=== PATIENT | male | born 1950 | race Caucasian/White ===

== ENCOUNTER → 2017-01-23 | Outpatient (CLI) | payer OTHER | LOC: BHCLAF 10:45 | PROVIDERS: ATTEND Internal Medicine Cardiovascular Disease | DX: I42.9 Cardiomyopathy, unspecified (principal); I34.9 Nonrheumatic mitral valve disorder, unspecified | CPT/HCPCS: 93306-PO ==

== ENCOUNTER → 2017-01-25 | Outpatient (CLI) | payer OTHER | LOC: BHFA 13:30 | PROVIDERS: ATTEND Internal Medicine Cardiovascular Disease | DX: I47.2 Ventricular tachycardia (principal); I42.8 Other cardiomyopathies; I49.3 Ventricular premature depolarization ==

== ENCOUNTER 2018-10-29 14:12 | Inpatient (IN) | payer OTHER ==
[2018-10-29 15:02] LABS: PLATELET COUNT 231 10^3/uL (150-400)
--- NOTE | 2018-10-29 15:31 | EDPHY ---
H & P Stated Complaint: defibrillaator went of 4 times Time Seen by Provider: 10/29/18 14:54 HPI/ROS: CHIEF COMPLAINT: Defibrillator went off 4 times HISTORY OF PRESENT ILLNESS: 68-year-old male with nonischemic cardiomyopathy and a ICD presents after his defibrillator went off. He was caring a heavy glass door and had just sat down, when his AICD went off. This occurred at approximately 1:00 p.m.. The defibrillator discharge 3 subsequent times in 15 min. He denies chest pain, shortness of breath or dizziness during this period of time. He is currently asymptomatic. AICD was placed in 2014 and has never discharge previously. 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, nonsustained ventricular tachycardia, status post AICD placement in 2014, BLEEDING ULCER, HTN , ELEVATED CHOLESTEROL, COPD - Social History Smoking Status: Former smoker - Physical Exam Exam: General Appearance: Alert, pleasant Eyes: Pupils equal and round, no conjunctival pallor or injection ENT, Mouth: Mucous membranes moist Neck: Normal inspection Respiratory: Lungs are clear to auscultation Cardiovascular: Regular rate and rhythm Gastrointestinal: Abdomen is soft and nontender Neurological: A&O, nonfocal exam Skin: Warm and dry, no rash Extremities: Nontender, no pedal edema Psychiatric: Mood and affect normal Constitutional: Initial Vital Signs Temperature (C) 36.9 C 10/29/18 14:26 Heart Rate 75 10/29/18 14:26 Respiratory Rate 18 10/29/18 14:26 Blood Pressure 141/67 H 10/29/18 14:26 O2 Sat (%) 92 10/29/18 14:26 O2 Delivery Mode Room Air Allergies/Adverse Reactions: No Known Allergies Allergy (Unverified 02/06/15 22:17) Home Medications: Medication Instructions Recorded [place]-3 Fatty Acids [Fish Oil 1000 1,000 mg PO DAILY 02/07/15 mg (*)] Ascorbic Acid [Vitamin C 500 mg 500 mg PO DAILY@0530 09/22/15 (*)] FEXOFENADINE HCL 180 mg PO BID@0530,1700 09/22/15 Fluticasone Nasal [Flonase Nasal 2 sprays NASAL DAILY@17009/22/15 [place]] Lisinopril [Zestril 5 mg (*)] 5 mg PO DAILY@1700 09/22/15 Lovastatin 40 mg PO DAILY@17009/22/15 Metoprolol Succinate Xr [Toprol Xl 200 mg PO DAILY@17010/29/18 100 mg (*)] Warfarin Sodium [Coumadin 5MG (*)] 5 mg PO DAILY@17 10/29/18 Medical Decision Making - Diagnostics EKG Interpretation: EKG interpreted by me reveals AV paced rhythm, rate 70, no ST or T segment changes. Interpretation: Abnormal EKG Imaging Results: Chest X-Ray 10/29/18 14:56 Impression: Nothing acute identified. No evidence for cardiac decompensation. Imaging: I viewed and interpreted images myself ED Course/Re-evaluation: This patient presents after repetitive firing of his AICD. He is currently asymptomatic and is in a paced rhythm. The [employer] rep came to the ED and interrogated the pacemaker. Cardiology was consulted after a pacemaker interrogation. Dr Gould saw the pt in ED and reviewed the [employer] report. Acc to Dr. Gould, pt had an episode of Vtach and received AICD shocks. Advises admission to PCU for observation. Differential Diagnosis: includes though not limited to ACS, inappropriate AICD firing, persistent Vtach , atrial dysrhythmia - Data Points Laboratory Results: Laboratory Results 10/29/18 14:50 10/29/18 14:50 Medications Given: Ascorbic Acid (Vitamin C) 500 mg PO DAILY@0530 [facility] Stop: 04/28/19 05:29 Last Admin: 10/30/18 05:42 Dose: 500 mg Cetirizine HCl (Zyrtec) 10 mg PO DAILY@0530,1700 [facility] Stop: 04/28/19 05:29 Last Admin: 10/30/18 05:42 Dose: 10 mg Lisinopril (Zestril) 5 mg PO DAILY@1700 [facility] Stop: 04/27/19 22:14 Last Admin: 10/29/18 22:29 Dose: 5 mg [id number] Ethyl Esters (Fish Oil) 1,000 mg PO DAILY [facility] Stop: 04/28/19 08:59 Last Admin: 10/30/18 08:18 Dose: 1,000 mg Sotalol HCl (Betapace) 120 mg PO BID [facility] Stop: 04/28/19 09:44 Last Admin: 10/30/18 11:02 Dose: 120 mg Warfarin Sodium (Coumadin) 5 mg PO DAILY@17 [facility] Stop: 04/27/19 22:14 Last Admin: 10/29/18 22:28 Dose: 5 mg Discontinued Medications Metoprolol Succinate (Toprol Xl) 200 mg PO DAILY@1700 [facility] Stop: 04/27/19 22:14 Last Admin: 10/29/18 22:29 Dose: 200 mg Departure - Departure Disposition: [facility] Acute Clinical Impression: AICD discharge Condition: Serious
[2018-10-29 15:48] LABS: INR 2.28 (0.83-1.16); PROTIME(PATIENT) 25.1 SEC (12.0-15.0)
[2018-10-29] MEDS ORDERED: ACETAMINOPHEN 325 MG TAB PO PRN (17:12)
[2018-10-29] MEDS ORDERED: ONDANSETRON DISINTEGRATING 4 MG TAB PO PRN (17:12)
[2018-10-29] MEDS ORDERED: ONDANSETRON 4 MG/2 ML VIAL IVP PRN (17:12)
--- NOTE | 2018-10-29 18:57 | PDGENHP ---
History and Physical - Chief Complaint AICD shocked him 4 times - History of Present Illness 68 y/o male with history of non-ischemic cardiomyopathy and AICD placement in 2014 presents to the emergency room after his AICD shocked him 4 times within 15 minutes. This is my first encounter with the pt. He was evaluated in the emergency room. He is lying supine and in no apparent distress. He was carrying a heavy glass door (approximately 75 lbs) with a co-worker and afterwards, his AICD shocked him. It continued to shock him 3 more times within 15 minutes. He denies chest pains, SOB, lightheadedness, nausea, vomiting. Other [employer] was contacted and interrogated his device. Cardiology has been consulted; Dr. Gould aware of pt. The pt reports being shocked only once approximately 1.5 years ago but not multiple times like this episode. EKG: AV paced CXR: No acute processes identified. No evidence of cardiac decompensation. The pt is being admitted for observation. Vital Signs 151/77 HR 76 Resp 16 Temp 36.9c O2 98% RA History Information - Allergies/Home Medication List Allergies/Adverse Reactions: No Known Allergies Allergy (Unverified 02/06/15 22:17) Home Medications: Fluticasone/Salmeter 250/50Mcg [Advair 250/50 (*)] 1 puffs IH BID 02/07/15 [ Last Taken 09/21/15] Metoprolol Tartrate [Lopressor 25 mg (*)] 50 mg PO BID 02/07/15 [Last Taken 07/28] [place]-3 Fatty Acids [Fish Oil 1000 mg (*)] 1,000 mg PO DAILY 02/07/15 [Last Taken 09/21/15] Ascorbic Acid [Vitamin C 500 mg (*)] 500 mg PO DAILY 09/22/15 [Last Taken ] FEXOFENADINE HCL 180 mg PO DAILY PRN 09/22/15 [Last Taken 09/21/15] Fluticasone Nasal [Flonase Nasal [place]] 1 sprays NASAL DAILY 09/22/15 [Last Taken 09/21/15] Lisinopril [Zestril 5 mg (*)] 5 mg PO DAILY 09/22/15 [Last Taken 09/21/15] Lovastatin 40 mg PO HS 09/22/15 [Last Taken 09/21/15] Warfarin Sodium [Coumadin 3MG (*)] 6 mg PO DAILY16 09/22/15 [Last Taken 09/20/15 ] I have personally reviewed and updated: family history, medical history, social history, surgical history Past Medical History: Mitral valve replacement (2016) for endocarditis, non- sustained ventricular tachycardia, AICD (2015), hypertension, hyperlipidemia, COPD, non-ischemic cardiomyopathy - Family History Positive for: CAD Additional family history: Valve replacements for mother - Social History Smoking Status: Former smoker Alcohol Use: Rarely Drug Use: None Additional social history: Lives in [place] with his , Olivia. 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 Review of Systems Review of Systems: ROS: 10pt was reviewed & negative except for what was stated in HPI & below Constitutional: Reports: no symptoms EENMT: Reports: no symptoms Cardiac: Reports: no symptoms Respiratory: Reports: no symptoms Gastrointestinal: Reports: abdominal pain (Onset 2 days ago and only when he is attempting to sleep he will experience LUQ/LLQ pain when he "rolls" onto that side. He has taken pepto bismol and it moderately alleviates this discomfort.) Genitourinary: Reports: no symptoms Muscolosketal: Reports: no symptoms Skin: Reports: no symptoms Neurological: Reports: no symptoms Hematologic/Lymphatic: Reports: no symptoms Immunologic/Allergy: Reports: no symptoms Physical Exam Physical Exam: Lab data and imaging reviewed Imaging: See HPI list WBC: 9.75 INR: 2.28 Na: 138 K: 4.5 BUN/Creatinine: 30/1.1 Temp Pulse Resp BP Pulse Ox 36.9 C 76 16 151/77 H 98 10/29/18 14:26 10/29/18 16:46 10/29/18 16:46 10/29/18 16:46 10/29/18 16:46 Constitutional: no apparent distress, appears nourished, not in pain Eyes: PERRL, anicteric sclera, EOMI Ears, Nose, Mouth, Throat: moist mucous membranes, hearing normal, ears appear normal, no oral mucosal ulcers Cardiovascular: regular rate and rhythym, no murmur, rub, or gallop, No edema Peripheral Pulses: 2+: dorsalis-pedis (R) (Radial 2+), dorsalis-pedis (L) ( Radial 2+) Respiratory: no respiratory distress, no rales or rhonchi, clear to auscultation Gastrointestinal: normoactive bowel sounds, soft, non-tender abdomen, no palpable masses Genitourinary: no bladder fullness, no bladder tenderness Skin: warm, normal color, no rashes or abrasions, no fluctuance, no induration, No mottled Musculoskeletal: full muscle strength, no muscle tenderness, normal joint ROM, no joint effusions Neurologic: AAOx3, sensation intact bilaterally, CN II-XII Intact Psychiatric: interacting appropriately, not anxious, not encephalopathic, thought process linear Lymph, Heme, Immunologic: no cervical LAD, no supraclavicular LAD Lab Data & Imaging Review 10/29/18 14:50 10/29/18 14:50 WBC 9.75 10^3/uL (3.80-9.50) H 10/29/18 14:50 RBC 4.83 10^6/uL (4.40-6.38) 10/29/18 14:50 Hgb 14.5 g/dL (13.7-17.5) 10/29/18 14:50 Hct 42.9 % (40.0-51.0) 10/29/18 14:50 MCV 88.8 fL (81.5-99.8) 10/29/18 14:50 MCH 30.0 pg (27.9-34.1) 10/29/18 14:50 MCHC 33.8 g/dL (32.4-36.7) 10/29/18 14:50 RDW 13.5 % (11.5-15.2) 10/29/18 14:50 Plt Count 231 10^3/uL (150-400) 10/29/18 14:50 MPV 10.0 fL (8.7-11.7) 10/29/18 14:50 Neut % (Auto) 76.9 % (39.3-74.2) H 10/29/18 14:50 Lymph % (Auto) 13.2 % (15.0-45.0) L 10/29/18 14:50 [place] % (Auto) 7.9 % (4.5-13.0) 10/29/18 14:50 Eos % (Auto) 1.3 % (0.6-7.6) 10/29/18 14:50 Baso % (Auto) 0.5 % (0.3-1.7) 10/29/18 14:50 Nucleat RBC Rel Count 0.0 % (0.0-0.2) 10/29/18 14:50 Absolute Neuts (auto) 7.49 10^3/uL (1.70-6.50) H 10/29/18 14:50 Absolute Lymphs (auto) 1.29 10^3/uL (1.00-3.00) 10/29/18 14:50 Absolute Monos (auto) 0.77 10^3/uL (0.30-0.80) 10/29/18 14:50 Absolute Eos (auto) 0.13 10^3/uL (0.03-0.40) 10/29/18 14:50 Absolute Basos (auto) 0.05 10^3/uL (0.02-0.10) 10/29/18 14:50 Absolute Nucleated RBC 0.00 10^3/uL (0-0.01) 10/29/18 14:50 Immature Gran % 0.2 % (0.0-1.1) 10/29/18 14:50 Immature Gran # 0.02 10^3/uL (0.00-0.10) 10/29/18 14:50 PT 25.1 SEC (12.0-15.0) H 10/29/18 14:50 INR 2.28 (0.83-1.16) H 10/29/18 14:50 Sodium 139 mEq/L (135-145) 10/29/18 14:50 Potassium 4.5 mEq/L (3.5-5.2) 10/29/18 14:50 Chloride 108 mEq/L (97-110) 10/29/18 14:50 Carbon Dioxide 22 mEq/l (22-31) 10/29/18 14:50 Anion Gap 9 mEq/L (6-14) 10/29/18 14:50 BUN 30 mg/dL (7-23) H 10/29/18 14:50 Creatinine 1.1 mg/dL (0.7-1.3) 10/29/18 14:50 Estimated GFR > 60 10/29/18 14:50 Glucose 115 mg/dL (70-100) H 10/29/18 14:50 Calcium 9.6 mg/dL (8.5-10.4) 10/29/18 14:50 Magnesium 1.8 mg/dL (1.6-2.3) 10/29/18 17:50 Assessment & Plan Plan: 68 y/o male with history of non-ischemic cardiomyopathy, mitral valve replaced and AICD presents after AICD misfired 4 times. 1. AICD -[employer] interrogated -Cards consulted -Complete ECHO pending -Magnesium: 1.8/Potassium: 4.5 -Cont tele -CBC/CMP tomorrow 2. Hypertension -Stable, may continue home medications lisinopril and metoprolol. 3. Mitral valve replacement -May continue warfarin, INR 2.28 Diet: Cardiac VTE ppx: SCDs, Warfarin Code: Full Dispo: Admit to obs
--- NOTE | 2018-10-29 19:42 | HOSPPROG ---
Hospitalist Progress Note Assessment/Plan: I have personally seen and evaluated Ulises Atkins. I agree with the assessment and plan outlined in separate note by Janel CHAN. Objective: Vital Signs Temp Pulse Resp BP Pulse Ox 36.6 C 72 18 152/98 H 98 10/29/18 18:52 10/29/18 18:52 10/29/18 18:52 10/29/18 18:52 10/29/18 18:52 PT 25.1 SEC (12.0-15.0) H 10/29/18 14:50 INR 2.28 (0.83-1.16) H 10/29/18 14:50 ICD10 Worksheet Patient Problems: Problems Problem Status Onset COPD (chronic obstructive pulmonary disease) Acute Chest pain Acute Mitral valve replaced Acute SVT (supraventricular tachycardia) Acute
[2018-10-29] MEDS ORDERED: METOPROLOL SUCCINATE XR 100 MG TAB PO SCH (22:15)
[2018-10-29] MEDS: WARFARIN SODIUM 5 MG TAB PO SCH (22:28)
[2018-10-29] MEDS: LISINOPRIL 5 MG TAB PO SCH (22:29)
[2018-10-30 04:35] LABS: PLATELET COUNT 209 10^3/uL (150-400)
[2018-10-30] MEDS: ASCORBIC ACID 500 MG TAB PO SCH (05:42)
[2018-10-30] MEDS: CETIRIZINE 10 MG TAB PO SCH ×2 (05:42→16:58)
--- NOTE | 2018-10-30 07:40 | PDCARCONS ---
Cardiology Consult Reason for Consult: ICD discharge. Chief Complaint: I got shocked by my defibrillator. Requesting Physician: Dr. Alexandru Sevilla. History of Present Illness: This is a 68-year-old female typically followed in the outpatient clinic by Dr. Jeremiah Gee. His cardiovascular history is significant for a valvular heart disease status post mechanical mitral valve replacement which was performed in 1995. Apparently at that time, he developed bacterial endocarditis or necessitating replacement of his mitral valve. Many years later he developed a nonischemic cardiomyopathy. He status post implantation of a biventricular ICD about 3 years ago. With this device and maximal medical therapy he has had normalization of his ejection fraction. In January of 2017 he had an echocardiogram indicating that his ejection fraction was 50% associated with mild left ventricular enlargement. Furthermore, he has a history of nonsustained ventricular tachycardia and episodes of supraventricular tachycardia. He received a shock from his defibrillator about a year and a half ago. However has had only episodes of nonsustained ventricular tachycardia on device interrogations in the interim. He has been maintained on high-dose beta-blockers (Toprol XL 200 mg daily). Generally he states he feels well. He is seen in the emergency department in consultation. He came in after receiving 5 shocks from his defibrillator. He noted no preceding symptoms of dizziness or lightheadedness. He had no chest pain. He has been taking his medications regularly and has not added any [id number] medications. His device was interrogated. This demonstrated a tachyarrhythmia with cycle length of about 350 milliseconds. This was treated initially with ATP and subsequently 4 defibrillations. According to the interrogation there was not a successful termination of this arrhythmia. The arrhythmia must have, however, terminated following therapies as on arrival he was in a paced rhythm. The intracardiac electrograms demonstrate a loose correlation between the supraventricular and ventricular activities. In some instances atrial activity precedes and in other instances the atrial activity follows ventricular activation. History Information - Allergies/Home Medication List Allergies/Adverse Reactions: No Known Allergies Allergy (Unverified 02/06/15 22:17) Home Medications: [place]-3 Fatty Acids [Fish Oil 1000 mg (*)] 1,000 mg PO DAILY 02/07/15 [Last Taken 10/29/18] Ascorbic Acid [Vitamin C 500 mg (*)] 500 mg PO DAILY@0530 09/22/15 [Last Taken 10/29/18] FEXOFENADINE HCL 180 mg PO BID@0530,1700 09/22/15 [Last Taken 10/29/18 05:30] Fluticasone Nasal [Flonase Nasal [place]] 2 sprays NASAL DAILY@17009/22/15 [ Last Taken 10/29/18] Lisinopril [Zestril 5 mg (*)] 5 mg PO DAILY@17009/22/15 [Last Taken 10/28/18] Lovastatin 40 mg PO DAILY@169909/22/15 [Last Taken 10/28/18] Metoprolol Succinate Xr [Toprol Xl 100 mg (*)] 200 mg PO DAILY@169910/29/18 [ Last Taken 10/28/18] Warfarin Sodium [Coumadin 5MG (*)] 5 mg PO DAILY@17 10/29/18 [Last Taken ] I have personally reviewed and updated: family history, medical history, social history, surgical history Past Medical History: Valvular heart disease status post mechanical mitral valve replacement in the setting of bacterial endocarditis in 1995, resolved nonischemic dilated cardiomyopathy, history of PVCs, hypertension, hyperlipidemia. - Surgical History Additional surgical history: Mechanical mitral valve replacement surgery. - Family History Positive for: non-pertinent - Social History Smoking Status: Former smoker Alcohol Use: Rarely Drug Use: None Physical Exam Physical Exam: Temp Pulse Resp BP Pulse Ox 36.9 C 63 20 126/84 H 92 10/30/18 07:01 10/30/18 07:01 10/30/18 07:01 10/30/18 07:01 10/30/18 07:01 Constitutional: no apparent distress, appears nourished, not in pain Eyes: PERRL, anicteric sclera, EOMI Ears, Nose, Mouth, Throat: moist mucous membranes, hearing normal, ears appear normal, no oral mucosal ulcers Cardiovascular: regular rate and rhythym, no murmur, rub, or gallop, other ( Mechanical valve sounds), No edema Respiratory: no respiratory distress, no rales or rhonchi, clear to auscultation Gastrointestinal: normoactive bowel sounds, soft, non-tender abdomen, no palpable masses Genitourinary: no bladder fullness, no bladder tenderness Skin: warm, normal color, no rashes or abrasions, no fluctuance, no induration, No mottled Musculoskeletal: full muscle strength, no muscle tenderness, normal joint ROM, no joint effusions Psychiatric: interacting appropriately, not anxious, not encephalopathic, thought process linear Lymph, Heme, Immunologic: no cervical LAD, no supraclavicular LAD Lab and Imaging 10/30/18 03:12 10/30/18 03:12 WBC 7.24 10^3/uL (3.80-9.50) 10/30/18 03:12 RBC 4.59 10^6/uL (4.40-6.38) 10/30/18 03:12 Hgb 13.4 g/dL (13.7-17.5) L 10/30/18 03:12 Hct 40.9 % (40.0-51.0) 10/30/18 03:12 MCV 89.1 fL (81.5-99.8) 10/30/18 03:12 MCH 29.2 pg (27.9-34.1) 10/30/18 03:12 MCHC 32.8 g/dL (32.4-36.7) 10/30/18 03:12 RDW 13.8 % (11.5-15.2) 10/30/18 03:12 Plt Count 209 10^3/uL (150-400) 10/30/18 03:12 MPV 10.4 fL (8.7-11.7) 10/30/18 03:12 Neut % (Auto) 56.2 % (39.3-74.2) 10/30/18 03:12 Lymph % (Auto) 29.8 % (15.0-45.0) 10/30/18 03:12 [place] % (Auto) 10.1 % (4.5-13.0) 10/30/18 03:12 Eos % (Auto) 3.0 % (0.6-7.6) 10/30/18 03:12 Baso % (Auto) 0.6 % (0.3-1.7) 10/30/18 03:12 Nucleat RBC Rel Count 0.0 % (0.0-0.2) 10/30/18 03:12 Absolute Neuts (auto) 4.07 10^3/uL (1.70-6.50) 10/30/18 03:12 Absolute Lymphs (auto) 2.16 10^3/uL (1.00-3.00) 10/30/18 03:12 Absolute Monos (auto) 0.73 10^3/uL (0.30-0.80) 10/30/18 03:12 Absolute Eos (auto) 0.22 10^3/uL (0.03-0.40) 10/30/18 03:12 Absolute Basos (auto) 0.04 10^3/uL (0.02-0.10) 10/30/18 03:12 Absolute Nucleated RBC 0.00 10^3/uL (0-0.01) 10/30/18 03:12 Immature Gran % 0.3 % (0.0-1.1) 10/30/18 03:12 Immature Gran # 0.02 10^3/uL (0.00-0.10) 10/30/18 03:12 PT 25.1 SEC (12.0-15.0) H 10/29/18 14:50 INR 2.28 (0.83-1.16) H 10/29/18 14:50 Sodium 140 mEq/L (135-145) 10/30/18 03:12 Potassium 4.2 mEq/L (3.5-5.2) 10/30/18 03:12 Chloride 109 mEq/L (97-110) 10/30/18 03:12 Carbon Dioxide 21 mEq/l (22-31) L 10/30/18 03:12 Anion Gap 10 mEq/L (6-14) 10/30/18 03:12 BUN 24 mg/dL (7-23) H 10/30/18 03:12 Creatinine 1.0 mg/dL (0.7-1.3) 10/30/18 03:12 Estimated GFR > 60 10/30/18 03:12 Glucose 90 mg/dL (70-100) 10/30/18 03:12 Calcium 8.9 mg/dL (8.5-10.4) 10/30/18 03:12 Magnesium 1.8 mg/dL (1.6-2.3) 10/29/18 17:50 Total Bilirubin 1.0 mg/dL (0.1-1.4) 10/30/18 03:12 AST 41 IU/L (17-59) 10/30/18 03:12 ALT 34 IU/L (21-72) 10/30/18 03:12 Alkaline Phosphatase 64 IU/L (38-126) 10/30/18 03:12 Total Protein 7.0 g/dL (6.3-8.2) 10/30/18 03:12 Albumin 3.8 g/dL (3.5-5.0) 10/30/18 03:12 A/P Assessment: This is a 68-year-old male with a history valvular heart disease status post mechanical mitral valve replacement in 1995, a resolved nonischemic dilated cardiomyopathy, nonsustained ventricular tachycardia, history of SVT seen in the emergency department after receiving an episode of ATP and for episodes of defibrillation in the setting of a tachyarrhythmia. In reviewing the electrocardiograms the mechanism of the arrhythmia is difficult to ascertain. There are some instances that appear to be an SVT (likely atrial tachycardia) while other instances appear to be more of a ventricular tachycardia. This has been occurring in the setting of high-dose beta-valeria therapy. Fortunately, he had minimal symptoms. In reviewing his laboratory tests his initial electrolytes are all within normal limits. Furthermore he has not started any new [id number] medications. Plan: 1. He will be admitted to telemetry monitored overnight. 2. I have ordered an echocardiogram to reassess his LV systolic function. 3. I would like to discuss this with electrophysiology for consideration of electrophysiologic study to help determine the etiology of this arrhythmia. Review of Systems Review of Systems: - Review of Systems Constitutional: no symptoms reported EENTM: no symptoms reported Respiratory: no symptoms reported Cardiac: no symptoms reported Gastrointestinal/Abdominal: no symptoms reported Genitourinary: no symptoms Musculoskelatal: no symptoms Skin: no symptoms Neurological: no symptoms Hematologic/Lymphatic: no symptoms reported Immunologic/allergic: no symptoms reported All Other Systems: Reviewed and Negative
[2018-10-30] MEDS: OMEGA-3 FATTY ACIDS 1,000 MG CAP PO SCH (08:18)
--- NOTE | 2018-10-30 09:19 | HOSPPROG ---
Hospitalist Progress Note Assessment/Plan: #Tachyarrhythmia: evaluated by Dr. Gee. -start Sotalol, monitor EKG #h/o endocarditis: s/p MVR #NI-CDM: no e/o volume overload #COPD: no e/o exacerbation #HTN: Lisinopril #HLD: statin #DVT ppx: on Coumadin #Disp: inpatient admission for Sotalol, tele, serial EKG Subjective: AICD fired several times yesterday. No CP or SOB today Objective: Vital Signs Temp Pulse Resp BP Pulse Ox 36.9 C 63 20 126/84 H 92 10/30/18 07:01 10/30/18 07:01 10/30/18 07:01 10/30/18 07:01 10/30/18 07:01 Laboratory Results 10/30/18 03:12 10/30/18 03:12 10/29/18 10/30/18 10/31/18 05:59 05:59 05:59 Intake Total 350 Balance 350 PT 25.1 SEC (12.0-15.0) H 10/29/18 14:50 INR 2.28 (0.83-1.16) H 10/29/18 14:50 - Time Spent With Patient Time Spent with Patient: greater than 35 minutes Time Spent with Patient: Greater than 35 minutes spent on this patients care, greater than 50% of time spent counseling, educating, and coordinating care regarding the above mentioned plan. - Physical Exam Constitutional: no apparent distress, obese Ears, Nose, Mouth, Throat: moist mucous membranes Cardiovascular: regular rate and rhythym, edema (trace pedal edema) Respiratory: no respiratory distress, No inspiratory crackles Gastrointestinal: normoactive bowel sounds, soft, non-tender abdomen Genitourinary: no bladder fullness Skin: warm Musculoskeletal: full muscle strength Neurologic: AAOx3, CN II-XII Intact Psychiatric: interacting appropriately ICD10 Worksheet Patient Problems: Problems Problem Status Onset AICD discharge Acute COPD (chronic obstructive pulmonary disease) Acute Chest pain Acute Mitral valve replaced Acute SVT (supraventricular tachycardia) Acute
[2018-10-30] MEDS: SOTALOL HCL 80 MG TAB PO SCH ×2 (11:02→21:40)
[2018-10-30 11:57] LABS: INR 2.24 (0.83-1.16); PROTIME(PATIENT) 24.8 SEC (12.0-15.0)
--- NOTE | 2018-10-30 12:27 | ASMTCMCOM ---
CM Note CM Note Notes: Reviewed chart and discussed pt with RN. Pt admitted for repeated AICD shock after carrying a heavy glass door. Pt lives with Sharlene and is independent with ADLs. Pt started on Sotolol today and will be inpatient for 1 - 2 more days on that medication. Pt anticipated to discharge independent on or Monday. No CM needs identified at this time. CM to follow. D/C Plan: independent Date Signed: 10/30/2018 12:26 PM Electronically Signed By:Jeanine Oviedo
--- NOTE | 2018-10-30 13:36 | ECHO ---
[email or web address] [address] Main: [phone] Fax: Transthoracic Echocardiogram Name: NAOMI BRASWELL MR#: [id number] Study Date: 10/30/2018 Study Time: 07:29 AM Date of : 1950 Age: 68 year(s) Height: 182.9 cm (72 in.) Weight: 117.94 kg (260 lb.) BSA: 2.38 m2 Gender: Male Examination: Echo Indication: F/U NID Image Quality: Adequate Contrast: Requested by: Armaan Gould BP: 126 mmHg/84 mmHg Heart Rate: Rhythm: Indication: F/U NIDCM Procedure Staff Ice Cream Vendor: Teagan Ball RDCS Reading Physician: Armaan Gould MD Requesting Provider: Conclusions: Left ventricle upper limits of normal. Normal global systolic LV function. EF is 54 %. No regional wall motion abnormality. There is a pacemaker lead noted in the right ventricle. The left atrium is severely dilated. The right atrium is mildly dilated. The mitral valve prosthesis exhibits normal function. There is a bi-leaflet [employer] mechanical prosthesis in place. The aortic valve is tri-leaflet. Trivial aortic valve regurgitation. Mild tricuspid regurgitation is present. The pulmonary artery pressure is normal. Right ventricular systolic pressure measures 26mmHg. This study is unchanged when compared to prior studies. Measurements: Chambers Valvular Assessment AV/MV Valvular Assessment TV/PV Normal Normal Normal Name Value Range Name Value Range Name Value Range Ao Katerine (2D): 3.5 cm (1.4 cm-2.6 AV Vmax: 1.06 m/s (1 m/s-1.7 TR Vmax: 2.27 mm/s ( - ) cm) m/s) TR PGmax: 21 mmHg ( - ) IVSd (2D): 1.0 cm (0.6 cm-1.1 AV maxP mmHg ( - ) syst. PAP: 26 mmHg ( - ) cm) AV meanP mmHg ( - ) PV Vmax: 1.11 m/s (0.6 m/s-0.9 LVDd (2D): 6.1 cm (4.2 cm-5.9 LVOT Vmax: 0.68 m/s (0.7 m/s-1.1 m/s) cm) m/s) PV PGmax: 5 mmHg ( - ) LVDs (2D): 4.4 cm (2.1 cm-4 NGUYEN (Vmax): 2.4 cm2 ( - ) cm) NGUYEN (VTI): 2.4 cm ( - ) LVPWd (2D): 1.0 cm (0.6 cm-1 MV E Vmax: 1.56 m/s ( - ) cm) MV maxP mmHg ( - ) Patient: NAOMI BRASWELL Study Date: 10/30/2018 Page 1 of 2 07:29 AM LVOTd 2.2 cm 2.2 cm mm MV meanP mmHg ( - ) LVEF (BP): 54 % (>=55 %) MV PHT: 0.128 s ( - ) RVDd(2D): 3.7 cm (1.9 cm-3.8 MVA (Vmax): 1.0 m/s ( - ) cmmm) MVA (PHT): 1.7 s ( - ) Continued Measurements: Chambers Valvular Assessment AV/MV Valvular Assessment TV/PV Name Value Name Value Name Value LADs: 6.0 cm MV DecTime: 422 m/s CVP (est.): 5 mmHg LADs Lon.6 cm MV VTI: 52.00 cm LA Area: 33.2 cm2 LA Volume: 127 ml LA Volume Index: 53.4 ml/m2 RA Area: 22.7 cm2 Additional Vessels Name Value Ao Ascendin.3 cm Inferior Vena Cava: 1.9 cm Findings: Left Ventricle: Left ventricle upper limits of normal. No LV hypertrophy. Normal global systolic LV function. EF is 54 %. No regional wall motion abnormality. Right Ventricle: Normal size right ventricle. Normal RV function. There is a pacemaker lead noted in the right ventricle. Left Atrium: The left atrium is severely dilated. Right Atrium: The right atrium is mildly dilated. Mitral Valve: The mitral valve prosthesis exhibits normal function. The prosthetic mitral valve is normal. Prosthetic mitral valve orifice motion is normal. Mild MV prosthesis regurgitation. There is a bi-leaflet [employer] mechanical prosthesis in place. Aortic Valve: The aortic valve is tri-leaflet. Trivial aortic valve regurgitation. No aortic valve stenosis is present. Tricuspid Valve: The tricuspid valve is normal in appearance and function. Mild tricuspid regurgitation is present. The pulmonary artery pressure is normal. Right ventricular systolic pressure measures 26mmHg. Pulmonic Valve: The pulmonic valve is normal in appearance and function. There is no pulmonic regurgitation seen. Aorta: The aorta is normal. Normal size aortic root measuring 3.5 cm. Normal size ascending aorta measuring 3.3 cm. IVC: The IVC is normal sized. Pericardium: No pericardial effusion. There is pericardial fat. No pleural effusion. (No Signature Object) Patient: NAOMI BRASWELL Study Date: 10/30/2018 Page 2 of 2 07:29 AM [id number]
--- NOTE | 2018-10-30 16:55 | CPEKG ---
Test Reason : OPEN Blood Pressure : / mmHG Vent. Rate : 070 BPM Atrial Rate : 071 BPM P-R Int : 152 ms QRS Dur : 132 ms QT Int : 450 ms P-R-T Axes : 000 213 026 degrees QTc Int : 486 ms Atrial-sensed ventricular-paced rhythm Confirmed by Kyaw Olson ([id number]) on 10/30/2018 4:55:08 PM Referred By: Confirmed By:Kyaw Olson
[2018-10-30] MEDS: LISINOPRIL 5 MG TAB PO SCH (16:58)
[2018-10-30] MEDS: PRAVASTATIN SODIUM 40 MG TAB PO SCH (16:58)
[2018-10-30] MEDS ORDERED: WARFARIN SODIUM 7.5 MG TAB PO ONE (17:00)
[2018-10-31 04:47] LABS: INR 2.49 (0.83-1.16); PROTIME(PATIENT) 26.9 SEC (12.0-15.0)
[2018-10-31] MEDS: CETIRIZINE 10 MG TAB PO SCH ×2 (05:48→18:06)
[2018-10-31] MEDS: ASCORBIC ACID 500 MG TAB PO SCH (05:48)
--- NOTE | 2018-10-31 08:27 | PDCARPN ---
Cardiology Progress Note Chief Complaint: VT, atrial tachycardia Assessment/Plan: Assessment: 1. Ventricular tachycardia and atrial tachycardia: Patient received ATP and 4 defibrillations 10/29 after carrying a mirror at work. No associated symptoms preceding this event. EGMs reviewed, which demonstrate what appears to be both VT and AT. Sotalol 120mg BID started yesterday, JTremains <400ms. Will continue Sotalol loading today. Will continue to hold Metoprolol, BPs WNL since discontinuing yesterday. 2. History of NICM: s/p BiV AICD. LVEF 54% by echo yesterday 3. History of mechanical MV replacement (1995) Plan: 1. Continue Sotalol 120mg BID. Continue to monitor JT 2hrs post-administration. 10/31/18 10:31 Objective: Vital Signs (8 Hrs) Temp Pulse Resp BP Pulse Ox 10/31/18 07:55 36.4 C 67 16 122/68 H 92 10/31/18 04:00 36.6 C 63 14 120/74 88 L Intake/Output (24 Hrs) 10/30/18 10/31/18 11/01/18 05:59 05:59 05:59 Intake Total 350 850 240 Balance 350 850 240 Intake: Oral (ml) 350 850 240 Other: Weight 121.4 kg Number of Voids Toilet 2 2 Number of Stools Toilet 1 Result Diagrams: 10/30/18 03:12 10/30/18 03:12 Telemetry: Paced rhythm - Physical Exam Constitutional: WDWN Ears, Nose, Mouth, Throat: moist mucous membranes, no oral ulcers, no thrush Cardiovascular: regular rate and rhythm, no rubs, no gallops, other (mechanical valve) Respiratory: clear to auscultate bilat, no crackles, no wheezes Gastrointestinal: normoactive bowel sounds, no tenderness, no masses Neurologic: AAOx3, CN II-XII grossly intact Psychiatric: cooperative, interactive, following commands, not anxious ICD10 Worksheet Patient Problems: Problems Problem Status Onset AICD discharge Acute COPD (chronic obstructive pulmonary disease) Acute Chest pain Acute Mitral valve replaced Acute SVT (supraventricular tachycardia) Acute
[2018-10-31] MEDS: SOTALOL HCL 80 MG TAB PO SCH ×2 (08:48→20:26)
[2018-10-31] MEDS: OMEGA-3 FATTY ACIDS 1,000 MG CAP PO SCH (08:48)
--- NOTE | 2018-10-31 12:39 | PDCARPN ---
Cardiology Progress Note Chief Complaint: ICD shocks Assessment/Plan: Assessment: 1. [facility] MVR 2. Cardiomyopathy post BiVICD - normalization of LVEF post BiV pacing 3. Atrial tachycardia 4. Ventricular tachycardia Plan: Reviewed EGM - both AT and VT seen Plan to start sotalol as inpatient. If this fails consider amiodarone vs ablation. 10/31/18 12:38 Subjective: LATE NOTE FOR 10/30/18 Feels well currently Reviewed/Discussed With: multidisciplinary team Time Spent with Patient: greater than 25 minutes Time Spent with Patient: Greater than 25 minutes spent on this patients care, greater than 50% of time spent counseling, educating, and coordinating care regarding the above mentioned plan. Objective: Vital Signs (8 Hrs) Temp Pulse Resp BP Pulse Ox 10/31/18 11:16 36.4 C 61 14 127/74 H 91 L 10/31/18 07:55 36.4 C 67 16 122/68 H 92 Intake/Output (24 Hrs) 10/30/18 10/31/18 11/01/18 11:59 11:59 11:59 Intake Total 350 1090 Balance 350 1090 Intake: Oral (ml) 350 1090 Other: Weight 121.4 kg Number of Voids Toilet 2 2 Number of Stools Toilet 1 Result Diagrams: 10/30/18 03:12 10/30/18 03:12 - Physical Exam Eyes: PERRL, EOMI Ears, Nose, Mouth, Throat: moist mucous membranes Cardiovascular: regular rate and rhythm, no murmurs, other (s2 [facility]) Neurologic: AAOx3 Psychiatric: cooperative, interactive, following commands, not anxious ICD10 Worksheet Patient Problems: Problems Problem Status Onset Chest pain Acute Mitral valve replaced Acute SVT (supraventricular tachycardia) Acute COPD (chronic obstructive pulmonary disease) Acute AICD discharge Acute
--- NOTE | 2018-10-31 13:58 | CPEKG ---
Test Reason : OPEN Blood Pressure : / mmHG Vent. Rate : 063 BPM Atrial Rate : 000 BPM P-R Int : 201 ms QRS Dur : 147 ms QT Int : 500 ms P-R-T Axes : 000 178 041 degrees QTc Int : 512 ms Ventricular-paced rhythm Confirmed by Fabrice Woo ([id number]) on 10/31/2018 1:58:18 PM Referred By: Confirmed By:Fabrice Woo
--- NOTE | 2018-10-31 14:03 | CPEKG ---
Test Reason : OPEN Blood Pressure : / mmHG Vent. Rate : 062 BPM Atrial Rate : 000 BPM P-R Int : 043 ms QRS Dur : 117 ms QT Int : 485 ms P-R-T Axes : 000 246 015 degrees QTc Int : 493 ms A-V dual-paced rhythm with some inhibition Confirmed by Fabrice Woo ([id number]) on 10/31/2018 2:03:16 PM Referred By: Confirmed By:Fabrice Woo
--- NOTE | 2018-10-31 14:08 | CPEKG ---
Test Reason : OPEN Blood Pressure : / mmHG Vent. Rate : 060 BPM Atrial Rate : 000 BPM P-R Int : 146 ms QRS Dur : 161 ms QT Int : 494 ms P-R-T Axes : 000 216 036 degrees QTc Int : 494 ms Ventricular-paced complexes PVC Confirmed by Fabrice Woo ([id number]) on 10/31/2018 2:07:56 PM Referred By: Confirmed By:Fabrice Woo
--- NOTE | 2018-10-31 14:21 | HOSPPROG ---
Hospitalist Progress Note Assessment/Plan: #Tachyarrhythmia: evaluated by Dr. Gee. AT and VT. -start Sotalol, monitor EKG. If not effective, try amiodarone and ablation #h/o endocarditis: s/p MVR #NI-CDM: no e/o volume overload #COPD: no e/o exacerbation #HTN: Lisinopril. Controlled #HLD: statin #DVT ppx: on Coumadin #Disp: inpatient admission for Sotalol, tele, serial EKG Subjective: no chest pain or SOB Objective: Vital Signs Temp Pulse Resp BP Pulse Ox 36.4 C 61 14 127/74 H 91 L 10/31/18 11:16 10/31/18 11:16 10/31/18 11:16 10/31/18 11:16 10/31/18 11:16 Laboratory Results 10/30/18 03:12 10/30/18 03:12 10/30/18 10/31/18 11/01/18 05:59 05:59 05:59 Intake Total 350 850 240 Balance 350 850 240 PT 26.9 SEC (12.0-15.0) H 10/31/18 03:05 INR 2.49 (0.83-1.16) H 10/31/18 03:05 - Time Spent With Patient Time Spent with Patient: greater than 35 minutes Time Spent with Patient: Greater than 35 minutes spent on this patients care, greater than 50% of time spent counseling, educating, and coordinating care regarding the above mentioned plan. - Physical Exam Constitutional: obese Eyes: PERRL Ears, Nose, Mouth, Throat: moist mucous membranes Cardiovascular: regular rate and rhythym Respiratory: no respiratory distress Gastrointestinal: normoactive bowel sounds Genitourinary: no bladder fullness Musculoskeletal: full muscle strength Neurologic: AAOx3, CN II-XII Intact Psychiatric: interacting appropriately ICD10 Worksheet Patient Problems: Problems Problem Status Onset AICD discharge Acute COPD (chronic obstructive pulmonary disease) Acute Chest pain Acute Mitral valve replaced Acute SVT (supraventricular tachycardia) Acute
--- NOTE | 2018-10-31 16:17 | PDMN ---
Medical Necessity Medical necessity: [facility] M575 Ventricular Arrhythmias: 68 yo presents w/ pacer which shocked pt x4 w/in 15min time period. Initially admit to OBS for pacer interrogation and cardiac consult. Pt meets IP criteria for VT and AT observed by cardiology w/ sotalol loading started. Change to IP status 10/31/18@1419 per MD order.
[2018-10-31] MEDS: PRAVASTATIN SODIUM 40 MG TAB PO SCH (18:06)
[2018-10-31] MEDS: WARFARIN SODIUM 5 MG TAB PO SCH (18:06)
[2018-10-31] MEDS: LISINOPRIL 5 MG TAB PO SCH (18:06)
[2018-11-01 04:43] LABS: INR 2.69 (0.83-1.16); PROTIME(PATIENT) 28.5 SEC (12.0-15.0)
[2018-11-01] MEDS: ASCORBIC ACID 500 MG TAB PO SCH (06:03)
[2018-11-01] MEDS: CETIRIZINE 10 MG TAB PO SCH (06:03)
--- NOTE | 2018-11-01 06:08 | CPEKG ---
Test Reason : OPEN Blood Pressure : / mmHG Vent. Rate : 067 BPM Atrial Rate : 000 BPM P-R Int : 172 ms QRS Dur : 159 ms QT Int : 521 ms P-R-T Axes : 000 209 060 degrees QTc Int : 550 ms A-V dual-paced complexes w/ some inhibition PVC Confirmed by Fabrice Woo ([id number]) on 11/01/2018 6:07:34 AM Referred By: Confirmed By:Fabrice Woo
[2018-11-01] MEDS: OMEGA-3 FATTY ACIDS 1,000 MG CAP PO SCH (08:56)
[2018-11-01] MEDS: SOTALOL HCL 80 MG TAB PO SCH (08:57)
--- NOTE | 2018-11-01 09:21 | PDCARPN ---
Cardiology Progress Note Chief Complaint: VT, AT Assessment/Plan: Assessment: 1. Ventricular tachycardia and atrial tachycardia: Patient received ATP and 4 defibrillations 10/29 after carrying a mirror at work. No associated symptoms preceding this event. EGMs reviewed, which demonstrate what appears to be both VT and AT. Sotalol 120mg BID started Monday, JT remains <400ms. BPs remain WNL , will discontinue Metoprolol. 2. History of NICM: s/p BiV AICD. LVEF 54% by echo 10/30 3. History of mechanical MV replacement (1995) Plan: 1. Continue Sotalol 120mg BID 2. Driving restrictions for 6 months 3. Patient is appropriate and stable for discharge home today from a cardiovascular standpoint 4. Follow-up with Heike at [facility] in 1 month 11/01/18 09:18 Subjective: No issues overnight. Patient has been ambulating around the unit and reports feeling quite well overall. Reviewed/Discussed With: multidisciplinary team Time Spent with Patient: greater than 35 minutes Time Spent with Patient: Greater than 35 minutes spent on this patients care, greater than 50% of time spent counseling, educating, and coordinating care regarding the above mentioned plan. Objective: Vital Signs (8 Hrs) Temp Pulse Resp BP Pulse Ox 11/01/18 07:24 36.6 C 65 16 127/81 H 94 11/01/18 03:57 36.6 C 63 16 105/64 94 Intake/Output (24 Hrs) 10/31/18 11/01/18 11/02/18 05:59 05:59 05:59 Intake Total 2049 Balance 2049 Intake: Oral (ml) 2049 Other: Number of Voids Toilet 2 Result Diagrams: 10/30/18 03:12 10/30/18 03:12 EKG: AV paced Telemetry: Paced rhythm overnight, no atrial or ventricular arrhythmia noted Echocardiogram: LVEF 54% by echo 10/30 - Physical Exam Constitutional: WDWN, healthy appearing, no apparent distress Ears, Nose, Mouth, Throat: moist mucous membranes, no oral ulcers, no thrush Cardiovascular: regular rate and rhythm, no murmurs, no rubs, no gallops Peripheral Pulses: 2+: dorsalis-pedis (R), dorsalis-pedis (L) Respiratory: clear to auscultate bilat, no crackles, no wheezes Gastrointestinal: normoactive bowel sounds, no tenderness, no masses Neurologic: AAOx3, CN II-XII grossly intact Psychiatric: cooperative, interactive, following commands, not anxious ICD10 Worksheet Patient Problems: Problems Problem Status Onset AICD discharge Acute COPD (chronic obstructive pulmonary disease) Acute Chest pain Acute Mitral valve replaced Acute SVT (supraventricular tachycardia) Acute
[2018-11-01 11:06] VITALS: BP 119/81
--- NOTE | 2018-11-01 13:16 | GDS ---
DISCHARGE DIAGNOSES: 1. Ventral/atrial tachycardia. 2. Compensated NI-CDM- has Bi-V AICD, left ventricular ejection fraction 54%. 3. History of mechanical mitral valve replacement. 4. Chronic obstructive pulmonary disease. 5. Hypertension. 6. Hyperlipidemia. HISTORY OF PRESENT ILLNESS: A pleasant 68-year-old male with a history of cardiomyopathy, status post BiV AICD, presents to the ER after AICD shocked him 4 times. He was carrying a heavy glass door, approximately 75 pounds, with a co -worker, and his AICD shocked him. It shocked him 3 more times within 15 minutes. He denied chest pain, shortness of breath, lightheadedness, nausea or vomiting. [employer] was contacted and interrogated the device. Cardiology consulted, and the patient was admitted to the hospital. HOSPITAL COURSE BY PROBLEM: 1. Ventricular/atrial tachycardia: Patient received ATP and 4 defibrillations , 10/29, after carrying mirror at work. Review demonstrates both VT and AT. Sotalol 120 mg b.i.d. was initiated, and patient has done well. Driving restrictions for [address] Gee in 1 month. 2. History of endocarditis, status post mechanical valve repair. INR is at goal. 3. Compensated nonischemic cardiomyopathy: No evidence of volume overload. Continue lisinopril. 4. Chronic obstructive pulmonary disease. No evidence of exacerbation. 5. Hypertension. Resume home medications. 6. Hyperlipidemia, statin. DISPOSITION: Patient is stable for discharge home with his . NEW MEDICATIONS: Sotalol 120 mg b.i.d. FOLLOWUP: Dr. Gee in 1 month. PHYSICAL EXAM: VITAL SIGNS: Today, 36.7, blood pressure 119/81, heart rate in the 60s, respirations 18, 93% on room air. GENERAL: He is obese, sitting, eating lunch, in no acute distress. HEENT: PERRLA. Moist mucous membranes. CV: Regular rate and rhythm. LUNGS: Clear. No crackles or wheeze. ABDOMEN: Obese, soft, nontender, nondistended. Positive bowel sounds. : No Bautista. MUSCULOSKELETAL: 5/5 upper and lower extremity strength. NEURO: 2 through 12 intact. PSYCH: Alert and oriented x3. Time spent on discharge: Greater than 30 minutes, coordinating medications and discharge. /[id number]/MODL MTDD
--- NOTE | 2018-11-02 17:36 | CPEKG ---
Test Reason : OPEN Blood Pressure : / mmHG Vent. Rate : 065 BPM Atrial Rate : 000 BPM P-R Int : 140 ms QRS Dur : 134 ms QT Int : 493 ms P-R-T Axes : 000 226 029 degrees QTc Int : 513 ms A-V dual-paced complexes w/ some inhibition Confirmed by Fabrice Woo ([id number]) on 11/02/2018 5:36:30 PM Referred By: Confirmed By:Fabrice Woo
== END 2018-11-01 12:55 | disposition home or self-care (01) | DRG 309 ==
LOC: F2W 18:41 → F2N 10-30 09:42 → F2W 10-30 09:46 → OBSVTOIN 10-31 14:19
PROVIDERS: ADMIT Internal Medicine; ATTEND Internal Medicine
PROC: 3E033RZ Introduction of Antiarrhythmic into Peripheral Vein, Percutaneous Approach (ICD-10-PCS; principal; 2018-10-31)
DX: I47.1 Supraventricular tachycardia (principal); I47.2 Ventricular tachycardia; I10 Essential (primary) hypertension; I42.0 Dilated cardiomyopathy; E78.00 Pure hypercholesterolemia, unspecified; J44.9 Chronic obstructive pulmonary disease, unspecified; Z95.810 Presence of automatic (implantable) cardiac defibrillator; Z95.2 Presence of prosthetic heart valve; Z79.01 Long term (current) use of anticoagulants; Z87.891 Personal history of nicotine dependence
CPT/HCPCS: G0378